=== PATIENT | female | born 1970 | race Caucasian/White ===

== ENCOUNTER 2024-11-29 05:30 | Inpatient (IN) | payer BC ==
--- OUTSIDE RECORDS SUMMARY | 2024-11-29 05:34 | XMS REPORT | Continuity of Care Document ---
Author Name Unknown Address [address] [facility] [address] [place] [address] [facility] Address [address] [facility] [place]. [address] [place] [address] Care Team Providers Care Education Adviser Name Role Phone Unavailable Unavailable Unavailable Payers Payer Name Policy Type Policy Number Effective Date Expirati on Date Source [facility] [id number] 2015 00:00:00 Allergies, Adverse Reactions, Alerts Allergy Name Allergy Type Status Severity Reaction(s) Onset Date Inactive Date Treating Clinician Comments Source adhesive tape DA Active SV 2016-03 00:00: 00 [facility] NO KNOWN ALLERGIE S Drug Class Active [facility] Encounters Start Date/Time End Date/Time Encounter Type Admission Type Attending Clinicians Care Facility Care Department Encounter ID Source 2020-06-29 16:15:00 2020-06-29 16:15:00 Outpatient [facility] [id number] [facility] 2020-06-08 16:30:00 2020-06-08 16:30:00 Outpatient [facility] [id number] [facility]
[2024-11-29] MEDS ORDERED: DICYCLOMINE HCL 20 MG/2 ML AMP IM ONE (06:26)
[2024-11-29] MEDS ORDERED: FAMOTIDINE 20 MG/2 ML VIAL IV ONE (06:26)
[2024-11-29] MEDS ORDERED: ONDANSETRON 4 MG/2 ML VIAL ONE ×2 (06:26→10:12)
[2024-11-29] MEDS ORDERED: KETOROLAC 30 MG/ML INJ ONE ×2 (06:26→11:20)
[2024-11-29] MEDS ORDERED: MORPHINE 4 MG/ML SYR ONE (06:26)
[2024-11-29] MEDS ORDERED: NA CHLORIDE 0.9% 1,000 ML ONE (06:27)
[2024-11-29 06:32] LABS: Absolute Lymphocytes (CBC) 1.0 K/uL (0.7-4.9); Hematocrit 40.1 % (36.0-45.0); Hemoglobin 13.5 g/dL (12.0-15.0); MCH 29.6 pg (27.0-35.0); MCHC 33.7 g/dL (32.0-36.0); MCV 87.8 fL (80-100); MPV 8.9 fL (7.6-11.3); Nucleated RBC Absolute Count 0.0 (0-0); Nucleated Red Blood Cells % 0.0 % (0-0); RBC Red Blood Cell Count 4.57 M/uL (3.86-4.86); White Blood Count 7.90 thou/uL (4.3-10.9)
[2024-11-29 06:52] LABS: ALT/SGPT 22.0 U/L (13-56); AST/SGOT 11.0 U/L (15-37); Albumin 3.9 g/dL (3.4-5.0); Albumin/Globulin Ratio 1.1 (1.1-1.8); Alkaline Phosphatase 75.0 U/L (45-117); Anion Gap 9.0 mEq/L (5.0-15.0); BUN Blood Urea Nitrogen 13.0 mg/dL (7-18); Globulin 3.4 g/dL (2.3-3.5); Glucose Level 124.0 mg/dL (74-106); Lipase 18.0 U/L (13-75); Potassium 4.0 mEq/L (3.5-5.1)
[2024-11-29 07:45] LABS: Sqamous Epithelial <5 /HPF (None Seen); Urine Culture Reflex Order NOT NEEDED; Urine Microscopic Reflex YN ORDER UMIC; Urine Yeast (Budding) Trace /HPF (None Seen)
--- NOTE | 2024-11-29 08:36 | RAD REPORT ---
EXAMINATION: CT Abdomen Pelvis W Contrast CLINICAL INDICATION: Female, 53 years old. ABD PAIN TECHNIQUE: CT abdomen and pelvis was performed, after the administration of IV contrast, as per [facility] protocol. Axial, sagittal and coronal reconstructions were obtained. One or more of the following dose reduction techniques were used: Automated exposure control, adjustment of the mA and k V according to patient size, and iterative reconstruction. Unless otherwise specified, incidental findings do not require dedicated imaging follow-up. COMPARISON: No prior exam. FINDINGS: LOWER CHEST: The visualized lung bases are clear. LIVER: Normal in size and contour. No focal lesion. BILIARY SYSTEM: No suspicious abnormalities. SPLEEN: Normal size. No focal lesion. PANCREAS: No mass, ductal dilation, or breana-pancreatic fluid. ADRENALS: Normal; no mass. KIDNEYS: Normal size and contour. No hydronephrosis. URINARY BLADDER: Unremarkable. GASTROINTESTINAL TRACT: No evidence of free air, significant intra-abdominal free fluid, bowel obstru ction or abscess. APPENDIX: Marked wall thickening and hyperenhancement distention of the distal appendix versus contai tyrese rupture measuring up to 1.7 CM caliber. No other periappendiceal collections. Adjacent pronounced fat stranding with mild distal sigmoid adventitial fat stranding, and trace fluid layering along the right paracolic gutter. LYMPH NODES: No lymphadenopathy. MUSCULOSKELETAL: No acute or suspicious osseous abnormality. ADDITIONAL FINDINGS: None. IMPRESSION: Distended distal appendix versus contained rupture with sequelae of acute appendicitis. Distal append ix measures up to 1.7 cm in caliber. Trace fluid along the right paracolic gutter. THIS REPORT CONTAINS FINDINGS THAT MAY BE CRITICAL TO PATIENT CARE. The findings were verbally commun icated via telephone to Micheal Ayala MD on 11/29/2024 8:31 AM.
[2024-11-29] MEDS ORDERED: NA CHLORIDE 0.9% 100 ML ONE (08:53)
[2024-11-29] MEDS ORDERED: PIPERACIL/TAZO 3.375 GM VIAL IV ONE (08:54)
--- NOTE | 2024-11-29 08:56 | ER ---
Nurse's Notes [facility] Name: Teresa Sandoval Age: 53 yrs Sex: Female : 1970 Arrival Date: 11/29/2024 Time: 05:30 Bed 2 Private MD: Diagnosis: Acute appendicitis with generalized peritonitis-with contained rupture Presentation: 11/29 06:03 Chief complaint: Patient states: abdominal pain that started yesterday and has lasted vc1 all night. Coronavirus screen: Client denies travel out of the [place] in the last 14 days. At this time, the client does not indicate any symptoms associated with coronavirus-19. Ebola Screen: Patient negative for fever greater than or equal to 101.5 degrees Fahrenheit, and additional compatible Ebola Virus Disease symptoms Patient denies exposure to infectious person. Patient denies travel to an Ebola-affected area in the 21 days before illness onset. No symptoms or risks identified at this time. Initial Sepsis Screen: Does the patient meet any 2 criteria? No. Patient's initial sepsis screen is negative. Does the patient have a suspected source of infection? No. Patient's initial sepsis screen is negative. Risk Assessment: Do you want to hurt yourself or someone else? Patient reports no desire to harm self or others. Onset of symptoms was November 28, 2024. 06:03 Method Of Arrival: Ambulatory vc1 06:03 Acuity: AMBER 3 vc1 Triage Assessment: 06:07 General: Appears in no apparent distress. uncomfortable, Behavior is calm, cooperative, vc1 appropriate for age. Pain: Complains of pain in umbilical area Pain radiates to right lower quadrant and left lower quadrant Pain currently is 6 out of 10 on a pain scale. Quality of pain is described as burning. EENT: No deficits noted. No signs and/or symptoms were reported regarding the EENT system. Neuro: Level of Consciousness is awake, alert, obeys commands, Oriented to person, place, time, situation, Appropriate for age. Cardiovascular: Capillary refill < 3 seconds Patient's skin is warm and dry. Respiratory: Airway is patent Respiratory effort is even, unlabored, Respiratory pattern is regular, symmetrical. GI: Abdomen is round non-distended, Reports lower abdominal pain, bloating, Patient currently denies nausea, vomiting. 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 - Infectious Disease History:: Denies. - Social history:: Smoking status: Patient denies any tobacco usage or history of. - Family history:: not pertinent. Screenin:06 [facility] ED Fall Risk Assessment (Adult) History of falling in the last 3 months, vc1 including since admission No falls in past 3 months (0 pts) Confusion or Disorientation No (0 pts) Intoxicated or Sedated No (0 pts) Impaired Gait No (0 pts) Mobility Assist Device Used No (0 pt) Altered Elimination No (0 pt) Score/Fall Risk Level 0 - 2 = Low Risk Oriented to surroundings, Maintained a safe environment, Educated pt \T\ family on fall prevention, incl call for assistance when getting out of bed, Assessed \T\ reinforced patient's understanding of fall precautions, Hourly rounding (assess needs \T\ fall precautionary measures) done. Abuse screen: Denies threats or abuse. Nutritional screening: No deficits noted. Tuberculosis screening: No symptoms or risk factors identified. Assessment: 06:00 General: Appears in no apparent distress. comfortable, Behavior is calm, cooperative, jj7 appropriate for age. Pain: Complains of pain in right lower quadrant Pain radiates to suprapubic area Pain currently is 6 out of 10 on a pain scale. GI: Abd is soft X 4 quads Abdomen is tender to palpation in suprapubic area and right lower quadrant Reports lower abdominal pain, bloating, nausea. 07:29 Reassessment: Patient appears in no apparent distress at this time. Patient and/or db family updated on plan of care and expected duration. Pain level reassessed. Patient is alert, oriented x 3, equal unlabored respirations, skin warm/dry/pink. PT AMBULATORY TO RESTROOM WITHOUT ASSISTANCCE. 09:15 Reassessment: Patient appears in no apparent distress at this time. Patient and/or cm10 family updated on plan of care and expected duration. Pain level reassessed. Patient is alert, oriented x 3, equal unlabored respirations, skin warm/dry/pink. Vital Signs: 06:03 BP 155 / 87; Pulse 93; Resp 18; Temp 98.4; Pulse Ox 99% ; Pain 6/10; vc1 07:30 BP 135 / 75; Pulse 87; Resp 18; Pulse Ox 97% on R/A; db 09:00 BP 144 / 81; Pulse 86; Resp 16; Pulse Ox 99% on R/A; cm10 06:03 Pain Scale: Adult vc1 Theresa Coma Score: 06:23 Eye Response: spontaneous(4). Motor Response: obeys commands(6). Verbal Response: sp4 oriented(5). Total: 15. ED Course: 05:34 Patient arrived in ED. gm2 06:00 Inserted saline lock: 20 gauge in left antecubital area, using aseptic technique. Blood jj7 collected. Flushed with 10 mL NS. 06:01 Nehemias Alicea MD is Attending Physician. sp4 06:05 Triage completed. vc1 06:06 Arm band placed on left wrist. vc1 06:06 Patient has correct armband on for positive identification. Bed in low position. Call vc1 light in reach. Provided Education on: NPO. Pulse ox on. NIBP on. 06:40 Anderson Luciano RN is Primary Nurse. jj7 06:44 Lipase Sent. jj7 06:44 CMP Sent. jj7 07:05 Report given to KATINA CORADO. jj7 07:25 CT Abd/Pelvis - IV Contrast Only In Process Unspecified. EDMS 07:40 Attending Physician role handed off by Nehemias Alicea MD rn 07:40 Micheal Ayala MD is Attending Physician. rn 07:40 Urine collected: clean catch specimen. db 07:43 Attending Physician role handed off by Micheal Ayala MD sp4 07:43 Nehemias Alicea MD is Attending Physician. sp4 07:50 Attending Physician role handed off by Nehemias Alicea MD rn 07:50 Micheal Ayala MD is Attending Physician. rn 08:55 Rinku Brown MD is Hospitalizing Provider. rn 08:55 Gilberto Ayala MD is Hospitalizing Provider. rn 09:35 No provider procedures requiring assistance completed. Patient admitted, IV remains in cm10 place. Administered Medications: 06:40 Drug: NS 0.9% IV 1000 ml IV at 1 bolus Per protocol; to be given as a bolus over 60 jj7 minutes Route: IV; Rate: 1 bolus; Site: left antecubital; 07:40 Follow up: Response: No adverse reaction; IV Status: Completed infusion; IV Intake: cm10 1000ml 06:42 Drug: morphine IVP or IV 6 mg IVP once over 4 mins Route: IVP; Infused Over: 4 mins; jj7 Site: left antecubital; 07:40 Follow up: Response: No adverse reaction cm10 06:42 Drug: Dicyclomine IM 20 mg IM once Route: IM; Site: left deltoid; jj7 07:40 Follow up: Response: No adverse reaction cm10 06:43 Drug: Famotidine IVP 20 mg IVP once; dilute with 10 mL 0.9% NaCl; give over 2 minutes jj7 Route: IVP; Site: left antecubital; 06:43 Drug: TORadol - Ketorolac IVP 30 mg IVP once Route: IVP; Site: left antecubital; jj7 06:43 Drug: Ondansetron IVP 4 mg IVP once; over 2 minutes Route: IVP; Site: left antecubital; jj7 09:28 Drug: Piperacillin-Tazobactam IVPB 3.375 grams IVPB once over 60 mins; (mix in NS 100 cm10 mL) Route: IVPB; Infused Over: 60 mins; Site: left antecubital; 09:37 Follow up: Response: No adverse reaction; IV Status: Infusion continued upon admission cm10 Medication: 06:06 VIS not applicable for this client. vc1 Intake: 07:40 IV: 1000ml; Total: 1000ml. cm10 Outcome: 08:56 Decision to Hospitalize by Provider. rn 09:35 Admitted to OR accompanied by nurse, via wheelchair, cm10 09:35 Condition: stable 09:35 Instructed on the need for admit, 09:36 Patient left the ED. cm10 Signatures: Dispatcher [employer] EDMS Micheal Ayala MD MD rn Calcote, Vanessa, RN RN vc1 Anderson Luciano RN RN jj7 Taina Burrows RN RN db Nehemias Alicea MD MD sp4 Keysha Brown, MICKIE RN cm10 Kailey Monahan 2
--- NOTE | 2024-11-29 08:56 | EDPHYS ---
Physician Documentation [facility] Name: Teresa Sandoval Age: 53 yrs Sex: Female : 1970 Arrival Date: 11/29/2024 Time: 05:30 Bed 2 Private MD: ED Physician Micheal Ayala HPI: 11/29 06:02 This 53 yrs old Female presents to ER via Unassigned with complaints of sp4 Abdominal Pain. 06:23 53-year-old female history of ulcerative colitis currently unmanaged presents with sp4 acute lower abdominal pain right lower quadrant. Associated with nausea. Denied diarrheal illness denied fever.. 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 - Infectious Disease History:: Denies. - Social history:: Smoking status: Patient denies any tobacco usage or history of. - Family history:: not pertinent. ROS: 06:23 Constitutional: Negative for fever, chills, and weight loss, positive right lower sp4 abdominal pain positive nausea Eyes: Negative for injury, pain, redness, and discharge, 06:23 All other systems are negative, Exam: 06:23 Constitutional: This is a well developed, well nourished patient who is awake, alert, sp4 and in no acute distress. Head/Face: Normocephalic, atraumatic. Eyes: Pupils equal round and reactive to light, extra-ocular motions intact. Lids and lashes normal. Conjunctiva and sclera are not injected. Cornea within normal limits. Periorbital areas with no swelling, redness, or edema. ENT: Nares patent. No nasal discharge, no septal abnormalities noted. Tympanic membranes are normal and external auditory canals are clear. Oropharynx with no redness, swelling, or masses, exudates, or evidence of obstruction, uvula midline. Mucous membranes moist. Neck: Trachea midline, no thyromegaly or masses palpated, and no cervical lymphadenopathy. Supple, full range of motion without nuchal rigidity, or vertebral point tenderness. Chest/axilla: Normal chest wall appearance and motion. Nontender with no deformity. No lesions are appreciated. Cardiovascular: Regular rate and rhythm with a normal S1 and S2. No gallops, murmurs, or rubs. No pulse deficits. Respiratory: Lungs have equal breath sounds bilaterally, clear to auscultation and percussion. No rales, rhonchi or wheezes noted. No increased work of breathing, no retractions or nasal flaring. Abdomen/GI: Soft, with normal bowel sounds. No distension or tympany. No guarding , Positive right lower quadrant abdominal tenderness with positive rebound Back: No spinal tenderness. No costovertebral tenderness. Skin: Warm, dry with normal turgor. Normal color with no rashes, no lesions, and no evidence of cellulitis. MS/ Extremity: Pulses equal, no cyanosis. Neurovascular intact. Full, normal range of motion. Neuro: Awake and alert, GCS 15, oriented to person, place, time, and situation. Cranial nerves II-XII grossly intact. Motor strength 5/5 in all extremities. Sensory grossly intact. Psych: Awake, alert, with orientation to person, place and time. Behavior, mood, and affect are within normal limits Vital Signs: 06:03 BP 155 / 87; Pulse 93; Resp 18; Temp 98.4; Pulse Ox 99% ; Pain 6/10; vc1 07:30 BP 135 / 75; Pulse 87; Resp 18; Pulse Ox 97% on R/A; db 09:00 BP 144 / 81; Pulse 86; Resp 16; Pulse Ox 99% on R/A; cm10 06:03 Pain Scale: Adult vc1 Rampart Coma Score: 06:23 Eye Response: spontaneous(4). Motor Response: obeys commands(6). Verbal Response: sp4 oriented(5). Total: 15. MDM: 06:05 Medical Screening Exam initiated sp4 07:50 Transition of care: Care assumed from Nehemias Alicea MD. rn 08:03 Differential diagnosis: appendicitis, bowel obstruction, diverticulitis, gastritis, rn non-specific abd pain, pancreatitis, urinary tract infection, colitis, ulcerative colitis. 08:54 Data reviewed: vital signs, nurses notes, lab test result(s), radiologic studies, CT rn scan, and as a result, I will admit patient. Consideration of Admission/Observation Patient was admitted/placed on observation. Escalation of care including admission/observation considered. 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 Brown, will call OR. Care significantly affected by the following chronic conditions: Ulcerative colitis. Counseling: I had a detailed discussion with the patient and/or guardian regarding the historical points, exam findings, and any diagnostic results supporting the discharge/admit diagnosis, lab results, radiology results, the need for further work-up and treatment in the hospital. Response to treatment: the patient's symptoms have mildly improved after treatment, and as a result, I will admit patient. 11/29 06:16 Order name: CBC with Diff; Complete Time: 07:35 sp4 11/29 06:16 Order name: CMP; Complete Time: 07:35 sp4 11/29 06:16 Order name: Lipase; Complete Time: 07:35 sp4 11/29 07:29 Order name: UA Rfx Yuan Cult if indicated; Complete Time: 07:53 db 11/29 09:26 Order name: Basic Metabolic Panel EDMS 11/29 09:26 Order name: Basic Metabolic Panel EDMS 11/29 09:26 Order name: Basic Metabolic Panel EDMS 11/29 09:26 Order name: Basic Metabolic Panel EDMS 11/29 09:26 Order name: CBC with Automated Diff EDMS 11/29 09:26 Order name: CBC with Automated Diff EDMS 11/29 09:26 Order name: CBC with Automated Diff EDMS 11/29 09:26 Order name: CBC with Automated Diff EDMS 11/29 06:16 Order name: CT Abd/Pelvis - IV Contrast Only; Complete Time: 08:37 sp4 11/29 06:23 Order name: CT Abd/Pelvis - IV Contrast Only sp4 11/29 06:16 Order name: IV Saline Lock; Complete Time: 06:44 sp4 11/29 06:16 Order name: Labs collected and sent; Complete Time: 06:44 sp4 11/29 08:37 Order name: NPO; Complete Time: 09:10 rn Administered Medications: 06:40 Drug: NS 0.9% IV 1000 ml IV at 1 bolus Per protocol; to be given as a bolus over 60 jj7 minutes Route: IV; Rate: 1 bolus; Site: left antecubital; 07:40 Follow up: Response: No adverse reaction; IV Status: Completed infusion; IV Intake: cm10 1000ml 06:42 Drug: morphine IVP or IV 6 mg IVP once over 4 mins Route: IVP; Infused Over: 4 mins; jj7 Site: left antecubital; 07:40 Follow up: Response: No adverse reaction cm10 06:42 Drug: Dicyclomine IM 20 mg IM once Route: IM; Site: left deltoid; jj7 07:40 Follow up: Response: No adverse reaction cm10 06:43 Drug: Famotidine IVP 20 mg IVP once; dilute with 10 mL 0.9% NaCl; give over 2 minutes jj7 Route: IVP; Site: left antecubital; 06:43 Drug: TORadol - Ketorolac IVP 30 mg IVP once Route: IVP; Site: left antecubital; jj7 06:43 Drug: Ondansetron IVP 4 mg IVP once; over 2 minutes Route: IVP; Site: left antecubital; jj7 09:28 Drug: Piperacillin-Tazobactam IVPB 3.375 grams IVPB once over 60 mins; (mix in NS 100 cm10 mL) Route: IVPB; Infused Over: 60 mins; Site: left antecubital; 09:37 Follow up: Response: No adverse reaction; IV Status: Infusion continued upon admission cm10 Disposition Summary: 11/29/24 08:56 Hospitalization Ordered Notes: Hospitalization Status: Inpatient Admission rn Provider: Gilberto Ayala rn Location: Telemetry/[facility] (Inpatient) rn Condition: Stable rn Problem: new rn Symptoms: have improved rn Bed/Room Type: Standard rn Room Assignment: rn Diagnosis - Acute appendicitis with generalized peritonitis - with contained rupture rn Forms: - Medication Reconciliation Form rn - SBAR form rn - Leadership Thank You Letter rn Signatures: Dispatcher [employer] EDMicheal Patino MD MD rn Calcote, Vanessa RN RN vc1 Anderson Luciano RN RN jj7 Nehemias Alicea MD MD sp4 Keysha Brown RN RN cm10 Corrections: (The following items were deleted from the chart) 06:17 06:16 CBC+H.LAB.BRZ ordered. EDMS EDMS 06:17 06:17 COMPREHENSIVE METABOLIC PANEL+C.LAB.BRZ ordered. EDMS EDMS 06: 06:17 LIPASE+C.LAB.BRZ ordered. [facility] 06: 06:17 Abdomen Pelvis W Con+CT.RAD.BRZ ordered. [facility] 06:25 Differential diagnosis: appendicitis, diverticulitis, Dysmenorrhea, rn Endometriosis, gastritis, Hepatitis, sp4 06:25 Data reviewed: vital signs, nurses notes, lab test result(s), radiologic studies, rn CT scan, [facility] 06:25 Consideration of Admission/Observation Escalation of care including varnish maker/observation considered. 4 06:25 Transition of care: After a detail discussion of the patient's case, care is rn transferred to Micheal Ayala MD sp4
[2024-11-29] MEDS ORDERED: ONDANSETRON 4 MG/2 ML VIAL IV PRN (09:22)
[2024-11-29] MEDS: Ringers Lactate 1,000 ML IV ONE (09:52)
[2024-11-29] MEDS: NA CHLORIDE 0.9% 1,000 ML IV SCH (10:00)
[2024-11-29] MEDS ORDERED: LIDOCAINE 2% MPF 5 ML VIAL ONE (10:12)
[2024-11-29] MEDS ORDERED: ROCURONIUM 50 MG/5 ML VIAL IV ONE (10:13)
[2024-11-29] MEDS ORDERED: FENTANYL CITR 100 MCG/2 ML ONE (10:13)
[2024-11-29] MEDS ORDERED: MIDAZOLAM HCL 2 MG/2 ML INJ ONE (10:13)
[2024-11-29] MEDS: SUGAMMADEX SODIUM 200 MG/2 ML VIAL IV ONE (10:19)
--- NOTE | 2024-11-29 11:33 | P.BOP ---
Preoperative diagnosis: perforated acute appendicitis Postoperative diagnosis: same, lower abdomen extensive intrabdominal adhesions Primary procedure: 1. Laparoscopic appendectomy Secondary procedure: 2. Laparoscopic extensive lysis of adhesions Estimated blood loss: <20cc Specimen: lashay Findings: see dicta Anesthesia: General Complications: None Drain(s): RAFAEL drain Transferred to: Recovery Room Condition: Good
--- NOTE | 2024-11-29 12:00 | P.HP ---
Certification for Inpatient Patient admitted to: Inpatient With expected LOS: >2 Midnights Patient will require the following post-hospital care: None Practitioner: I am a practitioner with admitting privileges, knowledge of patient current condition, hospital course, and medical plan of care. Services: Services provided to patient in accordance with Admission requirements found in Title 42 Section 412.3 of the Code of Federal Regulations Patient History Date of Service: 11/29/24 Reason for admission: Perforated appendicitis History of Present Illness: 53-year-old female with history of ulcerative colitis presents emergency department chief complaint of right lower quadrant abdominal pain. She reports the pain for about 3 days now. Patient evaluated here in the emergency department her labs were significant for a normal white blood cell count sodium [address] of the abdomen and pelvis was performed which showed distended distal appendix versus contained rupture with sequela of acute appendicitis. Distal appendix measures up to 1.7 cm in caliber with trace fluid along the right paracolic gutter. Patient has a vaginal surgery while in the ED will be admitted for appendicitis with planned appendectomy. Allergies No Known Allergies Allergy (Unverified 11/29/24 09:35) - Past Medical/Surgical History -: Ulcerative colitis -: Hysterectomy Psychosocial/ Personal History: Lives at home with family - Social History Alcohol use: No CD- Drugs: No Caffeine use: Yes Place of Residence: Home Review of Systems 10-point ROS is otherwise unremarkable Gastrointestinal: Nausea, Abdominal Pain Physical Examination - Vital Signs Temperature: 98.2 F Blood Pressure: 97/58 Pulse: 72 Respirations: 16 - Physical Exam General: Alert, In no apparent distress, Oriented x3 HEENT: Atraumatic, PERRLA, Sclerae nonicteric Neck: Supple, 2+ carotid pulse no bruit, No LAD Respiratory: Clear to auscultation bilaterally, Normal air movement Cardiovascular: Regular rate/rhythm, Normal S1 S2 Gastrointestinal: Normal bowel sounds, No tenderness Musculoskeletal: No tenderness Integumentary: No rashes Neurological: Normal speech - Studies Laboratory Data (last 24 hrs) 11/29/24 11/29/24 06:15 06:15 WBC 7.90 Hgb 13.5 Hct 40.1 Plt Count 215 Sodium 134 L Potassium 4.0 BUN 13 Creatinine 0.85 Glucose 124 H Total Bilirubin 0.6 AST 11 L ALT 22 Alkaline Phosphatase 75 Lipase 18 Assessment and Plan - Plan Assessment: Acute perforated appendicitis S/P laparoscopic appendectomy 11/29 History of ulcerative colitis Plan: Acute perforated appendicitis S/P laparoscopic appendectomy 11/29 History of ulcerative colitis Went for surgery this morning Continue empiric antibiotics, as needed pain medications IV fluids Anticipate 1 to 2 days of IV antibiotics will require after surgery DVT PPX: SCD Code status: Full code Discharge Plan: Home Plan to discharge in: 48 Hours - Advance Directives Does patient have a Living Will: No Does patient have a Durable POA for Healthcare: No - Code Status/Comfort Care Code Status Assessed: Yes (Full code) Critical Care: No Time Spent Managing Pts Care (In Minutes): 57
[2024-11-29] MEDS: HYDROMORPHONE HCL 1 MG/ML INJ ONE (12:10)
--- NOTE | 2024-11-29 13:00 | CON ---
Date of Consultation: 11/29/2024 Diagnosis: Acute appendicitis with the rupture. History Of Present Illness: This is the case of a female, who came to us with abdominal pain for the last 3 days. She has history of ulcerative colitis. She has not followed with her gastroenterologi st or have not done any colonoscopy recently. She does not want to even talk about it, but we advise d her the importance of following up with a professional in that sense since there is association of that and colon cancer. That been aside, she is here for the abdominal pain. She only want to talk a bout that and she stated that she had nausea, bloating, and the pain is getting worse. She came to [facility], diagnosed with a ruptured appendicitis, and a surgical consult was ordered emergently for proc edure. She denies any dysuria, hematuria, hematochezia, or melena. Denies any recent traveling out of the country. Denies any family member sick at home. No shortness of breath. No chest pain. No fever. Review of Systems: Ten points otherwise unremarkable. Past Medical History: Ulcerative colitis. Allergies: NONE. Past Surgical History: Include tonsillectomy, abdominal hysterectomy. Medications: None. Social History: She does not smoke. She does not drink alcohol. Family History: Noncontributory. Physical Examination: Vital Signs: Reviewed. General: The patient is awake and alert. HEENT: Pupils are equal and reactive. Anicteric. Neck: Supple. Chest: Clear. Heart: S1, S2. Abdomen: Generalized abdominal pain mostly in the right lower quadrant and lower pelvis. There is g uarding and rebound. Pelvic: Deferred. Rectal: Deferred. Breast: Deferred. Extremities: Good capillary refill. Laboratory Data: Blood work shows a WBC count of 7.9 with hemoglobin of 13.5, and platelets of 215. Potassium 4.0, creatinine is 0.85, total bilirubin of 0.6. CAT scan of the abdomen and pelvis shows marked wall thickening and hyperenhancement, distention of the distal appendix with a possible conta ined rupture. There is pronounced fat stranding with the mid distal sigmoid fat and right paracolic gutter. Assessment: This is a 53-year-old patient with appendicitis and rupture. The benefits, alternatives , and risks of emergent laparoscopic possible open appendectomy fully explained, which include, but n ot limited to, infection, bleeding, damage to adjacent structures, anesthesia complication, abscess, MD, and even . She also understands this may not relieve any symptoms, she might need more than one surgical intervention. She understands that depends on what we find today, she may need more th an appendectomy, sometimes may need even right hemicolectomy, although that is not the plan at this m oment. We have to see when we put cameras, how extensive this is, colitis and rupture. Regardless, if she improves from this one and is done even laparoscopically, it is imperative that she follow up with her tongsman for a colonoscopy. MARIA ANTONIA/CONY Voice ID: [id number] Report ID: [id number]
[2024-11-29] MEDS: MORPHINE 2 MG/ML SYR IV PRN (13:28)
--- NOTE | 2024-11-29 14:20 | OP ---
Date of Procedure: 11/29/2024 Surgeon: Rinku Brown MD Preoperative Diagnosis: Perforated acute appendicitis. Postoperative Diagnoses: Perforated acute appendicitis plus lower abdominal extensive intraabdominal adhesions. Procedures: 1. Laparoscopic appendectomy. 2. Laparoscopic extensive lysis of adhesions. Estimated Blood Loss: Less than 20 cc. Specimen: Appendix. Findings: As above. Inflamed with seropurulent discharge appendix. The patient has extensive intra abdominal adhesions from Pfannenstiel incisions. We had to spent about half the time just doing thos e adhesions down, releasing the bowel from the anterior abdominal wall just to start to do the case o f the appendix. Complications: None. Drains: RAFAEL #10. Indications: This is a case of a 53-year-old, who came to us with acute abdominal pain, guarding, re bound, diagnosed with perforated acute appendicitis, history of ulcerative colitis, and multiple abdo rhona Pfannenstiel incisions. The benefits, alternatives, and risks of emergent laparoscopic possibl e open appendectomy fully explained, which include, but not limited to, infection, bleeding, damage t o adjacent structures, anesthesia complication, abscess, HI, and even . She also understands th is may not relieve any symptoms, she might need more than one surgical intervention. She understood, signed a consent. Description Of Procedure: The patient was brought to the operating room, placed in supine position. Anesthesia was induced without complication. Abdominal area was prepped and draped in the usual cristiano rile fashion. Local anesthesia was applied after a time-out, followed by sharp incision of the skin. Incision was carried down to fascia, which was opened under direct vision. Peritoneum was encounte red, opened under direct vision. Vicryl #1 placed inside of the fascia. Torrey trocar was carefully introduced. Pneumoperitoneum was obtained. Immediately, we cannot see. There were a lot of adhesi ons in the lower abdomen apparently from the Pfannenstiel incision. So, we had to select place on th e lateral side on the left side. Under direct visualization, put a 5 mm trocar, and then slowly yasmin tored our way with the help of LigaSure to take adhesions down, many of them have the small bowel att ached to the anterior abdominal wall, but they were removed in a sequential manner without any entero tomies and we were able to clarify the lower abdomen and then we identified the area of the appendix. This omentum and the small bowel were trying to wall off the appendix carefully. We removed those, identified the appendix with the findings described. We noticed that the base of the appendix looke d spared from this problem, so we created a window in the base of the appendix, transected that with Endo RIGOBERTO 45 mm nonvascular and then the mesoappendix with the help of LigaSure. Appendix was removed from the abdominal cavity using EndoCatch through umbilical incision. Pneumoperitoneum was obtained once again. Profuse irrigation of the abdomen was done. We checked the area of lysis of adhesions. No bleeding. No enterotomies. The bowel amputation site of the appendix looked intact with no bow el leak. No bleeding. Profuse irrigation of the abdomen and the pelvis were done and suctioned. en, I left a RAFAEL drain in that region exiting through one of the trocar site and securing that in plac e with nylon. Sponge counts and instrument counts were correct. At that moment, I proceeded to def late the pneumoperitoneum. Closed the fascia with #1 Vicryl. Irrigated subcutaneous tissue, closed that with 3-0 chromic and the skin with van. Sponge counts and instrument counts were correct. The patient tolerated the procedure well. The patient was on her way to recovery in stable condition . MARIA ANTONIA/CONY Voice ID: [id number] Report ID: [id number]
[2024-11-29 16:25] VITALS: BMI 22.5
[2024-11-29] MEDS: PIPER TAZO 3.375 GM in NA CHLORIDE 0.9% 100 ML IV SCH (17:32)
[2024-11-29] MEDS: HYDROCODONE/APAP 5/325 MG TAB PO PRN (22:14)
[2024-11-30 05:54] LABS: Absolute Lymphocytes (CBC) 0.6 K/uL (0.7-4.9); Hematocrit 36.4 % (36.0-45.0); Hemoglobin 12.7 g/dL (12.0-15.0); MCH 30.7 pg (27.0-35.0); MCHC 34.9 g/dL (32.0-36.0); MCV 87.8 fL (80-100); MPV 8.6 fL (7.6-11.3); Nucleated RBC Absolute Count 0.0 (0-0); Nucleated Red Blood Cells % 0.1 % (0-0); RBC Red Blood Cell Count 4.15 M/uL (3.86-4.86); White Blood Count 7.30 thou/uL (4.3-10.9)
[2024-11-30 06:11] LABS: Anion Gap 10.2 mEq/L (5.0-15.0); BUN Blood Urea Nitrogen 10.0 mg/dL (7-18); Glucose Level 126.0 mg/dL (74-106); Potassium 4.2 mEq/L (3.5-5.1)
[2024-11-30 06:34] LABS: Segmented Neutrophils 84 % (40-80)
[2024-11-30 06:35] LABS: Differential Total Cells Count 100
[2024-11-30 06:36] LABS: Blood Morphology Comment NOT SEEN (NOT SEEN)
[2024-11-30] MEDS: DOCUSATE NA 100 MG CAP PO SCH (09:01)
[2024-11-30] MEDS: HYDROMORPHONE HCL 0.5 MG/0.5 ML INJ IV PRN (09:01)
--- NOTE | 2024-11-30 13:07 | P.PN ---
Date of Service: 11/30/24 Subjective: Has some abdominal pain No acute events overnight Tolerating liquid diet, passing gas, urinating ROS: 10 point ROS as noted above, otherwise negative Physical exam GEN: Alert, oriented, NAD HEENT: Normal conjunctiva, sclera anicteric CV: Regular rate and rhythm, no edema Pulm: Nonlabored respirations on room air ABD: Soft, nontender, nondistended, RAFAEL drain in place MSK: No joint tenderness Integumentary: No rashes Neuro: Normal speech, normal affect Vitals reviewed Assessment: Acute perforated appendicitis S/P laparoscopic appendectomy 11/29 History of ulcerative colitis Plan: Acute perforated appendicitis S/P laparoscopic appendectomy 11/29 History of ulcerative colitis Doing well postop, having abdominal tenderness/pain RAFAEL drain in place Continue empiric antibiotics, as needed pain medications IV fluids DVT PPX: SCD Code status: Full code Discharge Plan: Home Plan to discharge in: 48 Hours Time Spent Managing Pts Care (In Minutes): 35
[2024-12-01 06:28] LABS: Absolute Lymphocytes (CBC) 1.9 K/uL (0.7-4.9); Hematocrit 36.0 % (36.0-45.0); Hemoglobin 12.0 g/dL (12.0-15.0); MCH 29.9 pg (27.0-35.0); MCHC 33.4 g/dL (32.0-36.0); MCV 89.5 fL (80-100); MPV 8.9 fL (7.6-11.3); Nucleated RBC Absolute Count 0.0 (0-0); Nucleated Red Blood Cells % 0.0 % (0-0); RBC Red Blood Cell Count 4.02 M/uL (3.86-4.86); White Blood Count 5.50 thou/uL (4.3-10.9)
[2024-12-01 06:47] LABS: Anion Gap 9.2 mEq/L (5.0-15.0); BUN Blood Urea Nitrogen 16.0 mg/dL (7-18); Glucose Level 106.0 mg/dL (74-106); Potassium 4.2 mEq/L (3.5-5.1)
--- NOTE | 2024-12-01 14:36 | P.PN ---
Date of Service: 12/01/24 Subjective: Has some abdominal pain No acute events overnight Tolerating liquid diet, passing gas, urinating Doing well post op ROS: 10 point ROS as noted above, otherwise negative Physical exam GEN: Alert, oriented, NAD HEENT: Normal conjunctiva, sclera anicteric CV: Regular rate and rhythm, no edema Pulm: Nonlabored respirations on room air ABD: Soft, nontender, nondistended, RAFAEL drain in place MSK: No joint tenderness Integumentary: No rashes Neuro: Normal speech, normal affect Vitals reviewed Assessment: Acute perforated appendicitis S/P laparoscopic appendectomy 11/29 History of ulcerative colitis Plan: Acute perforated appendicitis S/P laparoscopic appendectomy 11/29 History of ulcerative colitis Doing well postop, having abdominal tenderness/pain RAFAEL drain in place Continue empiric antibiotics, as needed pain medications IV fluids discontinued Possible DC in AM DVT PPX: SCD Code status: Full code Discharge Plan: Home Plan to discharge in: 24 Hours Time Spent Managing Pts Care (In Minutes): 35
--- NOTE | 2024-12-01 21:51 | PN ---
Date of Progress Note: 12/01/2024 Diagnosis: Perforated appendicitis. Subjective: Patient is doing great. Vital signs stable. She is tolerating ambulation. Diet not mu ch and she has not been able to eat properly yet. Objective: Chest: Clear. Abdomen: Soft and depressible. RAFAEL drain serosanguineous. No pus. Extremities: Good capillary refill. No calf tenderness. Laboratory Data: Blood work reviewed. Plan: Advance diet. Whenever she can tolerate diet, she has to go home, with at least a week of ant ibiotics. I will remove the RAFAEL drain whenever she comes back to my office, this next Wednesday or , if she gets discharged over the weekend. MARIA ANTONIA/CONY Voice ID: [id number] Report ID: [id number]
[2024-12-02 04:11] VITALS: O2SAT 100
[2024-12-02 05:55] LABS: Absolute Lymphocytes (CBC) 1.7 K/uL (0.7-4.9); Hematocrit 35.7 % (36.0-45.0); Hemoglobin 12.3 g/dL (12.0-15.0); MCH 30.4 pg (27.0-35.0); MCHC 34.5 g/dL (32.0-36.0); MCV 88.1 fL (80-100); MPV 8.4 fL (7.6-11.3); Nucleated RBC Absolute Count 0.0 (0-0); Nucleated Red Blood Cells % 0.1 % (0-0); RBC Red Blood Cell Count 4.05 M/uL (3.86-4.86); White Blood Count 4.50 thou/uL (4.3-10.9)
[2024-12-02 07:27] LABS: BUN Blood Urea Nitrogen 11.0 mg/dL (7-18); Glucose Level 104.0 mg/dL (74-106); Potassium 3.8 mEq/L (3.5-5.1)
[2024-12-02 07:28] LABS: Anion Gap 5.0 mEq/L (5.0-15.0)
[2024-12-02] MEDS: POTASSIUM CL SA 10 MEQ TAB PO ONE (08:20)
[2024-12-02] MEDS: AMOX/K CLAV 875 MG TAB PO SCH (09:04)
[2024-12-02] MEDS: ALPRAZOLAM 0.25 MG TABLET PO ONE (09:04)
[2024-12-02 11:22] VITALS: BP 157/81; TEMP 97.8
--- NOTE | 2024-12-02 16:11 | P.DS ---
Admission Date: 11/29/24 Discharge Date: 12/02/24 Disposition: ROUTINE DISCHARGE Discharge Condition: GOOD Reason for Admission: Perforated appendicitis Brief History of Present Illness: 53-year-old female with history of ulcerative colitis presents emergency department chief complaint of right lower quadrant abdominal pain. She reports the pain for about 3 days now. Patient evaluated here in the emergency department her labs were significant for a normal white blood cell count sodium [address] of the abdomen and pelvis was performed which showed distended distal appendix versus contained rupture with sequela of acute appendicitis. Distal appendix measures up to 1.7 cm in caliber with trace fluid along the right paracolic gutter. Patient has a vaginal surgery while in the ED will be admitted for appendicitis with planned appendectomy. Hospital Course: Assessment: Acute perforated appendicitis S/P laparoscopic appendectomy 11/29 History of ulcerative colitis Patient was admitted to hospital for peripheral appendicitis. She underwent laparoscopic appendectomy and has done well postoperatively. Her white blood cell count has remained normal and she has been afebrile. She is tolerating a diet and her pain is controlled with oral medications. She stable discharge and outpatient follow-up. There is a RAFAEL drain in place, this will be removed in Dr. Brown's office on 12/06. Please call for an appointment. Prescriptions for pain medication, stool softener and antibiotics sent to [facility] in [place] Please also follow-up primary care doctor. Vital Signs/Physical Exam: Temp Pulse Resp BP Pulse Ox 97.8 F 68 16 157/81 H 100 12/02/24 11:21 12/02/24 11:21 12/02/24 11:21 12/02/24 11:21 12/02/24 11:21 General: Alert, In no apparent distress, Oriented x3 HEENT: Atraumatic, PERRLA Neck: Supple, JVD not distended Respiratory: Clear to auscultation bilaterally, Normal air movement Cardiovascular: Regular rate/rhythm, Normal S1 S2 Gastrointestinal: Other (RAFAEL drain in place) Musculoskeletal: No tenderness Integumentary: No rashes Neurological: Normal speech, Normal affect Laboratory Data at Discharge: WBC 4.50 thou/uL (4.3-10.9) 12/02/24 05:33 Hgb 12.3 g/dL (12.0-15.0) 12/02/24 05:33 Hct 35.7 % (36.0-45.0) L 12/02/24 05:33 Plt Count 186 thou/uL (152-406) 12/02/24 05:33 Sodium 138 mEq/L (136-145) 12/02/24 05:33 Potassium 3.8 mEq/L (3.5-5.1) 12/02/24 05:33 BUN 11 mg/dL (7-18) 12/02/24 05:33 Creatinine 0.81 mg/dL (0.55-1.02) 12/02/24 05:33 Glucose 104 mg/dL (74-106) 12/02/24 05:33 Total Bilirubin 0.6 mg/dL (0.2-1.0) 11/29/24 06:15 AST 11 U/L (15-37) L 11/29/24 06:15 ALT 22 U/L (13-56) 11/29/24 06:15 Alkaline Phosphatase 75 U/L (45-117) 11/29/24 06:15 Lipase 18 U/L (13-75) 11/29/24 06:15 Home Medications: LORazepam [Lorazepam] 0.5 mg PO BEDTIME PRN 11/30/24 Amox/Clavulanate [Augmentin 875-125 Tab*] 875 mg PO BID 10 Days #20 tab 12/02/24 Docusate [Colace Cap*] 100 mg PO DAILY #30 cap 12/02/24 Hydrocodone 5/APAP 325 [[place] 5/325*] 1 tab PO Q8H PRN #15 tab 12/02/24 New Medications: Amox/Clavulanate [Augmentin 875-125 Tab*] 875 mg PO BID 10 Days #20 tab Docusate [Colace Cap*] 100 mg PO DAILY #30 cap Hydrocodone 5/APAP 325 [[place] 5/325*] 1 tab PO Q8H PRN #15 tab PRN Reason: Pain Scale 5-7 (Moderate) Physician Discharge Instructions: Patient was admitted to hospital for perforated appendicitis. She underwent laparoscopic appendectomy and has done well postoperatively. Her white blood cell count has remained normal and she has been afebrile. She is tolerating a diet and her pain is controlled with oral medications. She stable discharge and outpatient follow-up. There is a RAFAEL drain in place, this will be removed in Dr. Brown's office on 12/06. Please call for an appointment. Prescriptions for pain medication, stool softener and antibiotics sent to [facility] in [place] Please also follow-up primary care doctor. Diet: Regular Activity: Ad ellis Followup: Rinku Brown MD [ACTIVE - CAN ADMIT] - 12/06/24 NONE,NONE [Primary Care Provider] - Time spent managing pt's care (in minutes): 48
== END 2024-12-02 12:18 | disposition home or self-care (01) | DRG 398 ==
LOC: ER 05:30 → ERHOLD 09:22 → OBSVTOIN 12:00 → 4TH 12:17
PROVIDERS: ADMIT Hospitalist; ATTEND Hospitalist
PROC: 0DTJ4ZZ Resection of Appendix, Percutaneous Endoscopic Approach (ICD-10-PCS; principal; 2024-11-29 10:00)
DX: K35.201 Acute appendicitis with generalized peritonitis, with perforation, without abscess (principal); E87.1 Hypo-osmolality and hyponatremia; Z90.710 Acquired absence of both cervix and uterus
CPT/HCPCS: 36415; 74177; 80048; 80053; 81001; 83690; 85025; 88304; 94010; 96361; 96372; 96374; 96375; 99285; J0500; J1100; J1171; J1885; J2003; J2250; J2270; J2405; J2543; J2704; J3010; J7030; J7120; Q9967